=== PATIENT | female | born 1970 | race Caucasian/White ===

== ENCOUNTER 2017-12-18 08:31 | Outpatient (CLI) | payer MEDICARE, MEDICAID ==
[2017-12-18 09:42] LABS: Hemoglobin 9.1 g/dL (12.0-16.0); Mean Corpuscular HGB CONC 31.3 g/dL (32.0-36.0); Mean Corpuscular Hemoglobin 24.4 pg (27.0-31.0); Mean Platelet Volume 7.4 fL (7.4-10.4); Platelet Count 281 thou/uL (130-400); RBC Distribution Width 16.2 % (11.5-14.5); Red Blood Cell (RBC) Count 3.72 mill/uL (4.20-5.40); White Blood Cell (WBC) Count 8.4 thou/uL (4.8-10.8)
[2017-12-18 09:47] LABS: INR-International Normal Ratio 0.9; PTT 28.5 SEC (22.9-36.1); Prothrombin Time 11.7 SEC (12.0-14.7)
[2017-12-18 10:16] LABS: ALT (SGPT) 14 U/L (8-55); AST (SGOT) 17 U/L (5-34); Albumin 4.1 g/dL (3.5-5.0); Alkaline Phosphatase 92 U/L (40-150); Anion Gap 12 mmol/L (10-20); BUN (Urea Nitrogen) 12 mg/dL (7.0-18.7); Bilirubin, Direct 0.1 mg/dL (0.1-0.3); Bilirubin, Total 0.2 mg/dL (0.2-1.2); Calc. Creatinine Clearance 0 mL/min (70-130); Calcium 9.5 mg/dL (7.8-10.44); Carbon Dioxide 29 mmol/L (22-29); Chloride 102 mmol/L (98-107); Estimated GFR-MDRD 88; Glucose 87 mg/dL (70-105); Protein, Total 6.7 g/dL (6.0-8.3); Sodium 139 mmol/L (136-145)
== END 2017-12-18 08:32 | disposition home or self-care (01) ==
LOC: LABBT 08:31
PROVIDERS: ATTEND Neurological Surgery
DX: Z01.818 Encounter for other preprocedural examination (principal); M54.16 Radiculopathy, lumbar region
CPT/HCPCS: 80048; 80076; 85027; 85610; 85730; 93005; 93010

== ENCOUNTER 2017-12-18 08:45 | Inpatient (IN) | payer MEDICARE, MEDICAID ==
[2017-12-18 08:38] VITALS: BMI 24.3
--- NOTE | 2017-12-25 08:54 | OP ---
DATE OF PROCEDURE: 12/25/2017 SURGEON: Josue Nava M.D. APRON OPERATOR: Pat Smith PROCEDURE: Left L4-5 laminectomy, facetectomy, foraminotomy, interbody arthrodesis, intravertebral b iomechanical device, local morselized autograft, demineralized bone matrix, posterior lateral arthrod esis, and pedicle screw instrumentation L4-L5. PROCEDURE IN DETAIL: The patient was brought to the operating room and intubated. She was rolled in the prone position on gel-filled chest rolls. Incision was made exposing L4 and L5 and our level wa s confirmed by x-ray. We performed the left L4-5 laminectomy, facetectomy, and foraminotomy, complet gianna decompressed left L4 and the neural foramen as well as left L5. The disk was incised and debride d and the bony endplates decorticated for the purpose of arthrodesis. An appropriately-sized intrave rtebral biomechanical PEEK device was brought into the field, filled with demineralized bone matrix, local morselized autograft, and tapped into place securely at L4-5. Next, pedicle screws were placed at left L4 and left L5 using lateral fluoroscopic guidance and positioning was confirmed by x-ray. A audrey was secured between the screws, connected by nuts. Compression was applied and the nuts were f inal tightened. The wound was then extensively irrigated, immaculate hemostasis was secured. A comb ination of demineralized bone matrix, local morselized autograft was laid over the laminar and apparatus repair mechanic olateral surfaces for the purpose of arthrodesis. Vancomycin powder was applied and the wound was cl osed in anatomic layers.
[2017-12-25] MEDS ORDERED: PHENYLEPHRINE-NS 100 MCG/ML 10 ML SYRINGE ONE (10:29)
[2017-12-25] MEDS ORDERED: Ondansetron HCl/PF 4 MG/2 ML Vial ONE (10:29)
[2017-12-25] MEDS ORDERED: Glycopyrrolate 0.2 MG/ML 5 ML SYRINGE ONE (10:29)
[2017-12-25] MEDS ORDERED: ePHEDrine/0.9% NaCl/PF SYRINGE 50 mg/10 ml ONE (10:29)
[2017-12-25] MEDS ORDERED: Metoclopramide HCl 10 MG/2 ML VIAL ONE (10:29)
[2017-12-25] MEDS ORDERED: Dexamethasone 20 MG/5 ML VIAL ONE (10:29)
[2017-12-25] MEDS ORDERED: Lidocaine 1% PF 5 ML VIAL ONE (10:29)
[2017-12-25] MEDS ORDERED: PROPOFOL 200 MG/20 ML VIAL ONE (10:29)
== END 2017-12-25 11:35 | disposition home or self-care (01) | DRG 460 ==
LOC: SURG A 12-25 06:01
PROVIDERS: ADMIT Neurological Surgery; ATTEND Neurological Surgery
PROC: 01NB0ZZ Release Lumbar Nerve, Open Approach (ICD-10-PCS; principal; 2017-12-25)
PROC: 0SG00J1 Fusion of Lumbar Vertebral Joint with Synthetic Substitute, Posterior Approach, Posterior Column, Open Approach (ICD-10-PCS; 2017-12-25)
PROC: 0SB20ZZ Excision of Lumbar Vertebral Disc, Open Approach (ICD-10-PCS; 2017-12-25)
DX: M54.16 Radiculopathy, lumbar region (principal); B19.20 Unspecified viral hepatitis C without hepatic coma; M19.90 Unspecified osteoarthritis, unspecified site; F17.200 Nicotine dependence, unspecified, uncomplicated; F31.9 Bipolar disorder, unspecified; F41.9 Anxiety disorder, unspecified
CPT/HCPCS: 76001; 96374; C1713; C1768; J1100; J2001; J2405; J2704; J2765

== ENCOUNTER 2018-01-29 19:38 | Emergency (ER) | payer MEDICARE, MEDICAID ==
[2018-01-29 20:25] LABS: #Basophils 0.1 thou/uL (0.0-0.2); #Eosinphils 0.1 thou/uL (0.0-0.7); #Lymphocytes 1.7 thou/uL (1.20-3.40); #Monocytes 0.4 thou/uL (0.11-0.59); %Basophils 1.1 % (0.0-1.0); %Lymphocytes 27.8 % (21.0-51.0); %Monocytes 5.9 % (0.0-10.0); %Neutrophils 64.2 % (42.0-75.0); Hemoglobin 9.9 g/dL (12.0-16.0); Mean Corpuscular HGB CONC 31.2 g/dL (32.0-36.0); Mean Corpuscular Hemoglobin 24.6 pg (27.0-31.0); Mean Corpuscular Volume 78.9 fL (78.0-98.0); Mean Platelet Volume 7.2 fL (7.4-10.4); Platelet Count 474 thou/uL (130-400); RBC Distribution Width 17.6 % (11.5-14.5); Red Blood Cell (RBC) Count 4.02 mill/uL (4.20-5.40); White Blood Cell (WBC) Count 6.2 thou/uL (4.8-10.8)
[2018-01-29] MEDS ORDERED: Ketorolac Tromethamine 60 MG/2 ML VIAL ONE (20:43)
[2018-01-29 20:45] LABS: ALT (SGPT) 8 U/L (8-55); AST (SGOT) 16 U/L (5-34); Alkaline Phosphatase 115 U/L (40-150); Anion Gap 11 mmol/L (10-20); BUN (Urea Nitrogen) 9 mg/dL (7.0-18.7); Bilirubin, Total 0.3 mg/dL (0.2-1.2); Calc. Creatinine Clearance 0 mL/min (70-130); Calcium 9.4 mg/dL (7.8-10.44); Carbon Dioxide 20 mmol/L (22-29); Chloride 110 mmol/L (98-107); Estimated GFR-MDRD 70; Globulin 2.9 g/dL (2.4-3.5); Glucose 107 mg/dL (70-105); Potassium 3.8 mmol/L (3.5-5.1); Protein, Total 6.9 g/dL (6.0-8.3); Sodium 137 mmol/L (136-145)
--- NOTE | 2018-01-29 21:24 | CT ---
CT OF THE LUMBAR SPINE WITHOUT CONTRAST: 01/29/18 COMPARISON: None. HISTORY: Back surgery on December 20. Left leg pain and back pain ever since the surgery. TECHNIQUE: Multiple contiguous axial images were obtained in a CT of the lumbar spine without contrast. Sagittal and coronal reforms were performed. FINDINGS: The patient is status post posterior fusion of L4 and L5 with left sided pedicle screws. The screws a ppear in good position. No perihardware lucency is appreciated. Bone graft material is seen along the right posterior elements. A disc spacer is seen within the L4-5 disc space. This is near the left goldman barticular region of the disc space. Streak artifact limits evaluation in this region and it cannot b e definitively excluded from being in the left subarticular recess. The vertebral bodies demonstrate normal height without subluxation. There is slight wedge deformity of the L1 vertebral body which is likely chronic. The prevertebral soft tissues are unremarkable. Postsurgical changes are seen in the stomach. IMPRESSION: Postsurgical changes of the lumbar spine as above. The disc spacer within the L4-5-S1 disc space exte nds posteriorly along the disc space near the subarticular region. Placement within the disc versus s ubarticular region cannot be definitely seen secondary to streak artifact. POS: [facility]
== END 2018-01-29 20:53 | disposition left against medical advice (07) ==
LOC: ERS 19:38
DX: Z53.21 Procedure and treatment not carried out due to patient leaving prior to being seen by health care provider (principal)
CPT/HCPCS: 36415; 72131; 80053; 85025; 85652; 86140; J1885

== ENCOUNTER 2018-02-19 13:22 | Outpatient (CLI) | payer MEDICARE, MEDICAID ==
--- NOTE | 2018-02-19 15:28 | RAD ---
RADIOGRAPH LUMBAR SPINE 2 VIEWS: 02/19/18 HISTORY: 47-year-old female with M54.16 - lumbar radiculopathy. COMPARISON: 01/08/18. FINDINGS: There are five lumbar type vertebrae. Decompression of the superior end plate of L1 resulting in mild loss of height. The rest of the vertebral body heights are maintained. Unilateral left pedicle screws at L4 and 5 with vertical interlocking audrey. Metallic markers for interbody graft at the left side of the L4-5 disc space. There are no osseous bridges between the end plates of L4 and L5. No spondylolisthesis. Mild disc space narrowing at L4-5. Mild disc space narrowing at L4-5 and T12-L1. The rest of the disc spaces are maintained. No interval change. IMPRESSION: 1. Interbody fusion graft and unilateral left pedicle screws at L4-5. No ankylosis across the di sc space. 2. Old compression fracture of L1. 3. No interval change since 01/08/18. [place] [] POS: [facility]
== END 2018-02-19 13:23 | disposition home or self-care (01) ==
LOC: TBSIIMAG 13:22
PROVIDERS: ATTEND Neurological Surgery
DX: M54.16 Radiculopathy, lumbar region (principal); Z98.1 Arthrodesis status
CPT/HCPCS: 72100

== ENCOUNTER 2018-03-19 07:12 | Day surgery (SDC) | payer MEDICARE, MEDICAID ==
[2018-03-18 10:20] VITALS: BMI 24.3
[2018-03-19 08:45] VITALS: BP 99/69; TEMP 97.6
[2018-03-19] MEDS ORDERED: Iopamidol-M 200 41% 20 ML VIAL ONE (10:40)
--- NOTE | 2018-03-19 11:05 | RAD ---
LUMBAR MYELOGRAM: History: Low back pain with radiculopathy. FINDINGS: After explaining the procedure and answering all questions, the lower back was prepped and draped in the usual sterile fashion. Sterile technique, buffered local anesthesia, fluoroscopic guidance and po sterior L2-3 approach were used to carefully advance a 22 gauge spinal needle into the thecal sac. Ap proximately 10 cc of Isovue 200 contrast was then carefully instilled into the thecal sac under fluor oscopic control. The needle was removed and spot images obtained. The patient tolerated the procedure well and was transferred to CT in good condition for further imaging. Fluoro time: 0.5 minutes. IMPRESSION: Technically successful lumbar myelogram. CT is pending. POS: [facility]
--- NOTE | 2018-03-19 11:27 | CT ---
CT LUMBAR SPINE WITH CONTRAST: HISTORY: Low back pain. Left leg radiculopathy. Prior surgery. FINDINGS: Contrast material in the thecal sac is consistent with recent myelogram. T12-L1: Mild chronic appearing compression of the T12 superior endplate. Disk space narrowing at th is level. Mild posterior disk bulge without significant central canal stenosis. Mild right foramina l stenosis. L1-L2/L2-L3/L3-L4: Mild osteophytosis. The central canal and neural foramina are patent. L4-L5: Left pedicle screws and vertical audrey. Interbody fusion material is in place. Disk space genoveva rowing. Posterior disk bulge and circumferential degenerative changes. Moderate stenosis of the the dana sac at this level. Soft tissue opacity throughout the left neural foramen and left lateral reces s, with poor definition of the left nerve root. Moderate stenosis of the right neural foramen. L5-S1: Mild osteophytosis and stenosis of each neural foramen. The thecal sac is patent. Minimal d isk bulge. IMPRESSION: Postoperative changes at the L4-L5 level, where the only significant degenerative changes of the lumb ar spine are present. There is moderate stenosis of the thecal sac. Soft tissue opacification throu ghout the left neural foramen and lateral recesses could represent scar tissue or other process affec ting the left L4 nerve root. No evidence of hardware complication. POS: [facility]
== END 2018-03-19 10:00 | disposition home or self-care (01) ==
LOC: RAD 07:12
PROVIDERS: ATTEND Neurological Surgery
PROC: B01B1ZZ Fluoroscopy of Spinal Cord using Low Osmolar Contrast (ICD-10-PCS; principal; 2018-03-19)
DX: M51.16 Intervertebral disc disorders with radiculopathy, lumbar region (principal); M51.25 Other intervertebral disc displacement, thoracolumbar region; M25.78 Osteophyte, vertebrae; M48.05 Spinal stenosis, thoracolumbar region; M48.061 Spinal stenosis, lumbar region without neurogenic claudication; M48.07 Spinal stenosis, lumbosacral region; Z79.899 Other long term (current) drug therapy; Z88.5 Allergy status to narcotic agent; Z88.8 Allergy status to other drugs, medicaments and biological substances; Z98.1 Arthrodesis status
CPT/HCPCS: 62304; 72132

== ENCOUNTER 2018-04-01 07:52 | Inpatient (IN) | payer MEDICARE, MEDICAID ==
[2018-03-29 11:07] VITALS: BMI 26.9
[2018-04-01 08:34] LABS: #Basophils 0.1 thou/uL (0.0-0.2); #Eosinphils 0.1 thou/uL (0.0-0.7); #Lymphocytes 1.6 thou/uL (1.20-3.40); #Monocytes 0.4 thou/uL (0.11-0.59); #Neutrophils 4.2 thou/uL (1.40-6.50); %Eosinophils 1.4 % (0.0-10.0); %Monocytes 5.9 % (0.0-10.0); %Neutrophils 66.7 % (42.0-75.0); Hemoglobin 9.8 g/dL (12.0-16.0); Mean Corpuscular HGB CONC 29.3 g/dL (32.0-36.0); Mean Corpuscular Hemoglobin 23.6 pg (27.0-31.0); Mean Corpuscular Volume 80.4 fL (78.0-98.0); Mean Platelet Volume 8.2 fL (7.4-10.4); Platelet Count 174 thou/uL (130-400); RBC Distribution Width 17.1 % (11.5-14.5); Red Blood Cell (RBC) Count 4.16 mill/uL (4.20-5.40); White Blood Cell (WBC) Count 6.3 thou/uL (4.8-10.8)
[2018-04-01] MEDS ORDERED: Sodium Chloride 0.9% 10 ML ONE (08:47)
[2018-04-01 08:51] LABS: Hypochromia SLIGHT = 6-15 cells (100X) (0-5/hpf); MDiff Complete? YES; PLT Morphology Comment Appears Adequate; Polychromasia SLIGHT = 2-3 cells (100X) (0-2/hpf)
[2018-04-01] MEDS ORDERED: CEFAZOLIN 2 GM/50 ML BAG ONE (08:53)
[2018-04-01 08:57] LABS: Anion Gap 8 mmol/L (10-20); BUN (Urea Nitrogen) 13 mg/dL (7.0-18.7); Calc. Creatinine Clearance 98 mL/min (70-130); Calcium 9.4 mg/dL (7.8-10.44); Carbon Dioxide 28 mmol/L (22-29); Chloride 104 mmol/L (98-107); Estimated GFR-MDRD 64; Glucose 83 mg/dL (70-105); Potassium 4.1 mmol/L (3.5-5.1); Sodium 136 mmol/L (136-145)
[2018-04-01] MEDS ORDERED: Fentanyl 100 MCG/2 ML VIAL ONE ×3 (09:27→10:57)
--- NOTE | 2018-04-01 10:11 | OP ---
DATE OF PROCEDURE: 04/01/2018 SURGEON: Josue Nava M.D. EXTRACTING MACHINE OPERATOR: Hayley Ramirez PA-C. PROCEDURE: Removal of hardware L4-L5, exploration of spinal fusion L4-L5, posterolateral arthrodesis , demineralized bone matrix and local morselized autograft, BMP, pedicle screw instrumentation L4-L5. PROCEDURE IN DETAIL: The patient was brought to the operating room and intubated. She was rolled in the prone position on gel-filled chest rolls. The previous incision was reopened. We identified th e previous hardware at L4-L5 and removed the nuts and audrey. We removed the left L5 screw as it was lo ose as anticipated. There was no evidence of solid bony fusion after exploration. We replaced a lar carroll diameter and longer length left L5 screw and then placed screws at right L4 and right L5 using la teral fluoroscopic guidance. A audrey was secured between the screws bilaterally, connected by nuts, wh ich were final tightened. The wound was then extensively irrigated. Immaculate hemostasis was secur ed. A combination of BMP and cancellous bone chips were laid over the laminar and posterolateral mai faces for the purpose of arthrodesis. Vancomycin powder was applied and the wound was closed in jae omic layers.
[2018-04-01] MEDS ORDERED: Milk Of Magnesia 30 ML UDCUP PO PRN (12:13)
[2018-04-01] MEDS ORDERED: Promethazine HCl 25 MG/ML VIAL IM PRN (12:13)
[2018-04-01] MEDS ORDERED: Ondansetron PF 4 MG/2 ML Vial IM PRN (12:13)
[2018-04-01] MEDS ORDERED: Promethazine 25 MG TAB PO PRN (12:13)
[2018-04-01] MEDS ORDERED: HYDROcodone/Acetaminophen 10/325 mg Tablet PO PRN (12:13)
[2018-04-01] MEDS ORDERED: Mag-Al 1200 mg/1200 mg/30 ML UDCUP PO PRN (12:13)
[2018-04-01] MEDS ORDERED: diphenhydrAMINE 50 MG/ML VIAL IVP PRN (12:13)
[2018-04-01] MEDS ORDERED: Promethazine HCl 12.5 MG SUPP PR PRN (12:13)
[2018-04-01] MEDS ORDERED: Morphine 4 MG/ML VIAL SLOW IVP PRN (12:13)
[2018-04-01] MEDS ORDERED: tiZANidine HCl 4 MG TAB PO PRN (12:13)
[2018-04-01] MEDS ORDERED: diphenhydrAMINE 25 MG CAP PO PRN (12:13)
[2018-04-01] MEDS ORDERED: SUMAtriptan Succinate 50 MG TAB PO PRN (12:38)
[2018-04-01] MEDS: Sodium Chloride 0.9% 1,000 ML IV SCH (12:42)
[2018-04-01] MEDS: HYDROcodone/Acetaminophen 10/325 mg Tablet PO PRN ×3 (12:52→21:41)
[2018-04-01] MEDS ORDERED: Gabapentin 300 MG CAP PO SCH (13:00)
[2018-04-01] MEDS: Promethazine 25 MG TAB PO PRN ×2 (13:59→23:51)
[2018-04-01] MEDS: Gabapentin 300 MG CAP PO SCH ×2 (14:42→21:40)
[2018-04-01] MEDS: Meclizine HCl 25 MG TAB PO SCH ×2 (14:42→21:38)
[2018-04-01] MEDS ORDERED: Glycopyrrolate 0.2 MG/ML 5 ML SYRINGE ONE (15:16)
[2018-04-01] MEDS: Morphine 2 MG/ML SYRINGE SLOW IVP PRN ×2 (15:16→19:06)
[2018-04-01] MEDS ORDERED: Dexamethasone 20 MG/5 ML VIAL ONE (15:16)
[2018-04-01] MEDS ORDERED: PROPOFOL 200 MG/20 ML VIAL ONE (15:16)
[2018-04-01] MEDS ORDERED: PHENYLEPHRINE-NS 100 MCG/ML 10 ML SYRINGE ONE (15:16)
[2018-04-01] MEDS ORDERED: Ondansetron PF 4 MG/2 ML Vial ONE (15:16)
[2018-04-01] MEDS ORDERED: Lidocaine 1% PF 5 ML VIAL ONE (15:16)
[2018-04-01] MEDS: Ketorolac Tromethamine 30 MG/ML VIAL IVP SCH ×2 (17:19→23:51)
[2018-04-01] MEDS: CEFAZOLIN 2 GM/50 ML-DEXTROSE 2 GM in Premix Bag 1 BAG IVPB SCH (17:20)
[2018-04-01] MEDS ORDERED: CEFAZOLIN 2 GM/50 ML-DEXTROSE 2 GM in Premix Bag 1 BAG IVPB SCH (18:00)
[2018-04-01] MEDS ORDERED: DULoxetine 30 MG CAP PO SCH (21:00)
[2018-04-01] MEDS ORDERED: DULoxetine 60 MG CAP PO SCH (21:00)
[2018-04-01] MEDS ORDERED: traZODone HCl 150 MG TAB PO SCH (21:00)
[2018-04-01] MEDS ORDERED: Lurasidone 20 MG TABLET PO SCH (21:00)
[2018-04-02] MEDS: Morphine 2 MG/ML SYRINGE SLOW IVP PRN (00:03)
[2018-04-02] MEDS: CEFAZOLIN 2 GM/50 ML-DEXTROSE 2 GM in Premix Bag 1 BAG IVPB SCH (00:04)
[2018-04-02] MEDS: HYDROcodone/Acetaminophen 10/325 mg Tablet PO PRN ×2 (01:36→06:48)
[2018-04-02] MEDS: Ketorolac Tromethamine 30 MG/ML VIAL IVP SCH (05:54)
[2018-04-02] MEDS: Sodium Chloride 0.9% 1,000 ML IV SCH (08:22)
--- NOTE | 2018-04-02 08:48 | EKG ---
Test Reason : PREOP Blood Pressure : / mmHG Vent. Rate : 072 BPM Atrial Rate : 072 BPM P-R Int : 148 ms QRS Dur : 072 ms QT Int : 386 ms P-R-T Axes : 074 042 047 degrees QTc Int : 422 ms Normal sinus rhythm Normal ECG When compared with ECG of 18-DEC-2017 09:12, No significant change was found Confirmed by DR. Sergo CLANCY ([id number]) on 04/02/2018 8:48:25 AM Referred By: BHUMI Confirmed By:DR. Sergo CLANCY
[2018-04-02] MEDS: Gabapentin 300 MG CAP PO SCH (08:54)
[2018-04-02] MEDS: Promethazine 25 MG TAB PO PRN (08:54)
[2018-04-02 10:40] VITALS: BP 97/60; TEMP 97.5
== END 2018-04-02 08:55 | disposition home or self-care (01) | DRG 460 ==
LOC: EDSTATUS 07:52 → SURG A 07:52
PROVIDERS: ADMIT Neurological Surgery; ATTEND Neurological Surgery
PROC: 0SG00AJ Fusion of Lumbar Vertebral Joint with Interbody Fusion Device, Posterior Approach, Anterior Column, Open Approach (ICD-10-PCS; principal; 2018-04-01)
PROC: 0SP004Z Removal of Internal Fixation Device from Lumbar Vertebral Joint, Open Approach (ICD-10-PCS; 2018-04-01)
PROC: 3E0U0GB Introduction of Recombinant Bone Morphogenetic Protein into Joints, Open Approach (ICD-10-PCS; 2018-04-01)
DX: M54.16 Radiculopathy, lumbar region (principal); G89.29 Other chronic pain
CPT/HCPCS: 36415; 76001; 80048; 85025; 93005; 93010; C1713; J1100; J1200; J1885; J2001; J2270; J2405; J2704; J3010; J3370; J3490

== ENCOUNTER 2018-04-16 14:20 | Outpatient (CLI) | payer MEDICARE, MEDICAID ==
--- NOTE | 2018-04-16 16:30 | RAD ---
LUMBAR SPINE RADIOGRAPHS TWO VIEWS: Date: 04-16-18 Provided Clinical History: Post op. FINDINGS: Comparison is made with the study dated 02-19-18. Bilateral pedicle screws and vertically interconnecting rods are noted spanning L4-5 with intervening intervertebral disc device. Lumbar alignment appears normal. Vertebral body height appear unchanged. Cutaneous александр overlying the dorsal aspect of the lower lumbar spine. IMPRESSION: Interval post-operative change as above. POS: [facility]
== END 2018-04-16 14:21 | disposition home or self-care (01) ==
LOC: TBSIIMAG 14:20
PROVIDERS: ATTEND Neurological Surgery
DX: M54.16 Radiculopathy, lumbar region (principal); Z98.890 Other specified postprocedural states
CPT/HCPCS: 72100

== ENCOUNTER 2018-05-28 13:48 | Outpatient (CLI) | payer MEDICARE, MEDICAID ==
--- NOTE | 2018-05-28 14:54 | RAD ---
LUMBAR SPINE TWO VIEWS: History: Follow up surgery. Lumbar pain. Comparison: 04-16-18 FINDINGS: Post op changes at L4-5 again noted. Posterior pedicle screws are unchanged in position. Interbody im plant is unchanged in position. Mild compression deformity involving the L1 vertebra is unchanged in appearance. IMPRESSION: Stable lumbar spine findings. POS: [facility]
== END 2018-05-28 13:49 | disposition home or self-care (01) ==
LOC: TBSIIMAG 13:48
PROVIDERS: ATTEND Neurological Surgery
DX: M54.16 Radiculopathy, lumbar region (principal)
CPT/HCPCS: 72100

== ENCOUNTER 2018-08-27 13:08 | Outpatient (CLI) | payer MEDICARE, MEDICAID ==
--- NOTE | 2018-08-27 14:26 | RAD ---
2 VIEWS LUMBAR SPINE: Date: 08/27/18 COMPARISON: 05/28/18. HISTORY: Status post back surgery. FINDINGS: Unchanged lumbar fusion at L4-L5. Stable loss of vertebral body height at L1. IMPRESSION: Stable fusion at L4-L5. POS: [facility]
== END 2018-08-27 13:09 | disposition home or self-care (01) ==
LOC: TBSIIMAG 13:08
PROVIDERS: ATTEND Neurological Surgery
DX: M54.16 Radiculopathy, lumbar region (principal); Z98.1 Arthrodesis status
CPT/HCPCS: 72100

== ENCOUNTER 2020-09-16 12:00 | Inpatient (IN) | payer MEDICARE, MEDICAID ==
[2020-09-20 16:03] VITALS: BMI 23.6
[2020-09-21] MEDS ORDERED: Tranexamic Acid 1,000 MG/10 ML VIAL ONE (05:59)
[2020-09-21] MEDS ORDERED: Vancomycin 1 GM/200 ML BAG ONE (05:59)
[2020-09-21] MEDS ORDERED: Sodium Chloride 0.9% 100 ML ONE (05:59)
[2020-09-21] MEDS ORDERED: Fentanyl 100 MCG/2 ML VIAL ONE ×5 (06:08→12:46)
[2020-09-21] MEDS ORDERED: Midazolam HCl 2 mg/2 ml Vial ONE (06:08)
[2020-09-21] MEDS ORDERED: Rocuronium Bromide 10 MG/ML (10ML VIAL) ONE (06:46)
[2020-09-21] MEDS ORDERED: Dexamethasone 20 MG/5 ML VIAL ONE (06:46)
[2020-09-21] MEDS ORDERED: Ondansetron PF 4 MG/2 ML Vial ONE (06:46)
[2020-09-21] MEDS ORDERED: Lidocaine 1% PF 5 ML VIAL ONE (06:46)
[2020-09-21] MEDS ORDERED: Glycopyrrolate 0.2 MG/ML 5 ML SYRINGE ONE (06:46)
[2020-09-21] MEDS ORDERED: PHENYLEPHRINE-NS 100 MCG/ML 10 ML SYRINGE ONE (06:46)
[2020-09-21] MEDS ORDERED: ePHEDrine Sulfate 50 MG/10 ML VIAL ONE (06:46)
[2020-09-21] MEDS ORDERED: PROPOFOL 200 MG/20 ML VIAL ONE (06:46)
[2020-09-21] MEDS ORDERED: diphenhydrAMINE 25 MG CAP PO PRN ×4 (06:57→15:30)
[2020-09-21] MEDS ORDERED: Acetaminophen 325 MG TAB PO PRN (06:57)
[2020-09-21] MEDS ORDERED: HYDROcodone/Acetaminophen 10/325 mg Tablet PO PRN ×2 (06:57)
[2020-09-21] MEDS ORDERED: Promethazine HCl 25 MG/ML VIAL IM PRN ×5 (06:57→15:30)
[2020-09-21] MEDS ORDERED: Ondansetron PF 4 MG/2 ML Vial IVP PRN ×4 (06:57→15:30)
[2020-09-21] MEDS ORDERED: Lidocaine 1.5% w/Epi 1:200K 30 ML VIAL (Epid Use) ONE (07:15)
[2020-09-21] MEDS ORDERED: Bupivacaine 0.25% HCL 30 ML VIAL ONE (07:23)
[2020-09-21] MEDS ORDERED: Acetaminophen 500 MG TAB PO PRN (09:05)
[2020-09-21] MEDS ORDERED: Ondansetron HCl/PF 4 MG/2 ML Vial IVP PRN (09:12)
[2020-09-21] MEDS ORDERED: Promethazine HCl 25 MG/ML VIAL SLOW IVP PRN (09:12)
[2020-09-21] MEDS ORDERED: HYDROmorphone 2 MG/ML VIAL SLOW IVP PRN (09:12)
[2020-09-21] MEDS ORDERED: HYDROcodone/Acetaminophen 5/325 mg Tablet PO PRN ×2 (09:15)
[2020-09-21] MEDS ORDERED: Naloxone HCl 0.4 mg/ml Vial IVP PRN (09:15)
[2020-09-21] MEDS ORDERED: Hydrocerin (Eucerin) Cream 120 gm Jar TOP PRN (09:15)
[2020-09-21] MEDS ORDERED: Promethazine HCl 25 MG SUPP PR PRN (09:15)
[2020-09-21] MEDS ORDERED: Bupivacaine 0.25% 10 ML VIAL EPIDURAL PRN (09:15)
[2020-09-21] MEDS ORDERED: Zolpidem Tartrate 5 MG TAB PO PRN (09:15)
[2020-09-21] MEDS ORDERED: diphenhydrAMINE 50 MG/ML VIAL IM PRN (09:15)
[2020-09-21] MEDS ORDERED: diphenhydrAMINE 50 MG/ML VIAL IVP PRN (09:15)
[2020-09-21] MEDS ORDERED: Naloxone HCl 0.4 mg/ml Vial IV PRN ×3 (09:15→15:30)
[2020-09-21] MEDS ORDERED: fentaNYL Citrate/PF 500 MCG, Bupivacaine 10 ML in Sodium Chloride 0.9% 80 ML EPIDURAL SCH (09:15)
[2020-09-21] MEDS ORDERED: traMADol HCl 50 MG TAB PO PRN ×2 (09:15)
[2020-09-21] MEDS ORDERED: HYDROmorphone 2 MG/ML VIAL ONE (09:22)
[2020-09-21] MEDS ORDERED: Promethazine HCl 25 MG/ML VIAL ONE (09:23)
[2020-09-21] MEDS ORDERED: Ketorolac Tromethamine 30 MG/ML VIAL ONE (09:50)
[2020-09-21] MEDS ORDERED: Ketorolac Tromethamine 30 MG/ML VIAL IVP SCH (12:00)
[2020-09-21] MEDS ORDERED: diphenhydrAMINE 50 MG/ML VIAL IM/IV PRN ×2 (12:45→15:30)
[2020-09-21] MEDS ORDERED: Fentanyl CADD 100 ML IVPB SCH (12:45)
[2020-09-21] MEDS ORDERED: Ketorolac Tromethamine 30 MG/ML VIAL IM SCH (14:00)
[2020-09-21] MEDS: CEFAZOLIN 2 GM in Premix Bag 1 BAG IVPB SCH ×2 (14:49→22:41)
[2020-09-21] MEDS: HYDROmorphone 10 mg/100 ml CADD IVPB PRN (16:15)
[2020-09-21] MEDS: Multivitamin W/ Minerals 1 TAB PO SCH (17:39)
[2020-09-21] MEDS: Ferrous Gluconate 324 MG TAB PO SCH ×2 (17:39→19:57)
[2020-09-21] MEDS: Aspirin 81 mg Enteric Coated Tablet PO SCH ×2 (17:39→19:57)
[2020-09-21] MEDS: Senokot S 8.6-50 MG TAB PO SCH ×2 (17:39→19:57)
[2020-09-21] MEDS: Sodium Chloride 0.9% 1,000 ML IV SCH ×2 (17:39→20:04)
[2020-09-22] MEDS: HYDROmorphone 10 mg/100 ml CADD IVPB PRN (04:51)
[2020-09-22 05:32] LABS: Hemoglobin 10.2 g/dL (12.0-16.0); Mean Corpuscular HGB CONC 32.8 g/dL (32.0-36.0); Mean Corpuscular Hemoglobin 30.3 pg (27.0-31.0); Mean Corpuscular Volume 92.1 fL (78.0-98.0); Mean Platelet Volume 8.2 fL (7.4-10.4); Platelet Count 193 thou/uL (130-400); RBC Distribution Width 13.3 % (11.5-14.5); Red Blood Cell (RBC) Count 3.38 mill/uL (4.20-5.40); White Blood Cell (WBC) Count 9.3 thou/uL (4.8-10.8)
[2020-09-22] MEDS: Multivitamin W/ Minerals 1 TAB PO SCH (09:14)
[2020-09-22] MEDS: Aspirin 81 mg Enteric Coated Tablet PO SCH (09:14)
[2020-09-22] MEDS: Senokot S 8.6-50 MG TAB PO SCH (09:14)
[2020-09-22] MEDS: Ferrous Gluconate 324 MG TAB PO SCH (09:14)
[2020-09-22] MEDS ORDERED: Acetaminophen 500 MG TAB PO SCH (09:15)
[2020-09-22] MEDS: Sodium Chloride 0.9% 1,000 ML IV SCH ×2 (10:12→12:18)
[2020-09-22] MEDS ORDERED: HYDROcodone/Acetaminophen 10/325 mg Tablet PO PRN ×4 (14:29→15:16)
[2020-09-22] MEDS ORDERED: traMADol HCl 50 MG TAB PO PRN ×2 (15:13→15:14)
[2020-09-22 16:03] VITALS: BP 108/79; TEMP 98
== END 2020-09-22 16:07 | disposition home or self-care (01) | DRG 470 ==
LOC: SJJU 09-21 05:29 → EDSTATUS 09-21 12:00 → SJJU 09-21 13:57
PROVIDERS: ADMIT Orthopaedic Surgery; ATTEND Orthopaedic Surgery
PROC: 0SRB04Z Replacement of Left Hip Joint with Ceramic on Polyethylene Synthetic Substitute, Open Approach (ICD-10-PCS; principal; 2020-09-21)
DX: M87.052 Idiopathic aseptic necrosis of left femur (principal); Z90.710 Acquired absence of both cervix and uterus; G89.29 Other chronic pain; G43.909 Migraine, unspecified, not intractable, without status migrainosus; F17.210 Nicotine dependence, cigarettes, uncomplicated; Z83.3 Family history of diabetes mellitus; Z82.49 Family history of ischemic heart disease and other diseases of the circulatory system
CPT/HCPCS: 36415; 85027; J0690; J1100; J1170; J1885; J2001; J2250; J2405; J2550; J2704; J3010; J3370; J3490; S0020

== ENCOUNTER 2020-09-16 12:21 | Outpatient (CLI) | payer MEDICARE, MEDICAID ==
[2020-09-16 15:26] LABS: INR-International Normal Ratio 0.9; Prothrombin Time 10.5 sec (9.5-12.1)
[2020-09-16 15:40] LABS: #Basophils 0.1 10x3/uL (0.0-0.2); #Eosinphils 0.1 10x3/uL (0.0-0.5); #Monocytes 0.6 10x3/uL (0.0-1.1); #Neutrophils 4.4 10x3/uL (1.5-8.4); %Basophils 0.7 % (0.0-2.0); %Eosinophils 1.3 % (0.0-6.0); %Lymphocytes 29.1 % (18.0-47.0); %Monocytes 7.8 % (0.0-10.0); %Neutrophils 60.7 % (40.0-75.0); Hemoglobin 14.3 g/dL (12.0-15.5); Mean Corpuscular HGB CONC 32.4 g/dL (32.0-36.0); Mean Corpuscular Hemoglobin 28.9 pg (27.0-33.0); Mean Corpuscular Volume 89.3 fl (81.6-98.3); Mean Platelet Volume 11.5 fl (7.4-10.4); Platelet Count 290 10x3/uL (150-450); RBC Distribution Width 14.6 % (11.5-14.5); Red Blood Cell (RBC) Count 4.95 10x6/uL (3.90-5.03); White Blood Cell (WBC) Count 7.2 10x3/uL (3.5-10.5)
[2020-09-16 15:42] LABS: Bilirubin Neg (Negative); Blood, Urine Negative (Negative); Clarity Clear (Clear); Glucose, Urine (Dipstick) Normal (Negative); Ketone, Urine Negative (Negative); Leukocyte 25 (Negative); Nitrite Negative (Negative); Protein, Urine (Dipstick) Negative (Neg-Trace); Specific Gravity, Urine 1.015 (1.002-1.036); Urobilinogen Normal mg/dL (Less than 2); pH, Urine 6.5 (5.0-9.0)
[2020-09-16 16:13] LABS: Anion Gap 19 mmol/L (10-20); BUN (Urea Nitrogen) 8 mg/dL (7.0-18.7); Calc. Creatinine Clearance 0 mL/min (70-130); Calcium 9.7 mg/dL (7.8-10.44); Carbon Dioxide 22 mmol/L (22-29); Chloride 100 mmol/L (98-107); Glucose 86 mg/dL (70-105); Potassium 4.4 mmol/L (3.5-5.1); Sodium 137 mmol/L (136-145)
[2020-09-16 16:14] LABS: Bacteria/HPF None Seen HPF (None Seen); RBC/HPF None Seen HPF (0-3); Squamous Epithelial None Seen HPF (0-3); WBC/HPF None Seen HPF (0-3)
[2020-09-17 01:48] LABS: SARS-CoV-2 PCR by NAA Not Detected (NotDetected)
== END 2020-09-16 12:22 | disposition home or self-care (01) ==
LOC: LABBT 12:21
PROVIDERS: ATTEND Orthopaedic Surgery
DX: Z01.818 Encounter for other preprocedural examination (principal); M87.052 Idiopathic aseptic necrosis of left femur; Z20.822 Contact with and (suspected) exposure to COVID-19
CPT/HCPCS: 80048; 81001; 85025; 85610; 87081; 93005; U0003; U0005; 87635; 93010

== ENCOUNTER 2020-10-01 16:39 | Emergency (ER) | payer MEDICARE, MEDICAID ==
[2020-10-01] MEDS ORDERED: HYDROcodone/Acetaminophen 10/325 mg Tablet ONE (18:23)
[2020-10-01] MEDS ORDERED: Promethazine 25 MG TAB ONE (18:24)
== END 2020-10-01 18:27 | disposition home or self-care (01) ==
LOC: ERS 16:39
DX: Z47.1 Aftercare following joint replacement surgery (principal); G47.00 Insomnia, unspecified; F17.210 Nicotine dependence, cigarettes, uncomplicated
CPT/HCPCS: Q0169

== ENCOUNTER 2021-10-23 17:48 | Emergency (ER) | payer MEDICARE, MEDICAID ==
[2021-10-23] MEDS ORDERED: Fentanyl 100 MCG/2 ML VIAL ONE (18:20)
[2021-10-23] MEDS ORDERED: Ketorolac Tromethamine 30 MG/ML VIAL ONE (18:20)
[2021-10-23] MEDS ORDERED: Boostrix 0.5 ML (Tdap) VIAL ONE (18:20)
[2021-10-23] MEDS ORDERED: Silver Sulfadiazine 50 GM TUBE ONE (18:23)
== END 2021-10-23 18:41 | disposition home or self-care (01) ==
LOC: ERS 17:48
DX: T25.231A Burn of second degree of right toe(s) (nail), initial encounter (principal); T24.111A Burn of first degree of right thigh, initial encounter; T25.111A Burn of first degree of right ankle, initial encounter; T31.0 Burns involving less than 10% of body surface; X10.2XXA Contact with fats and cooking oils, initial encounter; G47.00 Insomnia, unspecified; F17.210 Nicotine dependence, cigarettes, uncomplicated; Z23 Encounter for immunization
CPT/HCPCS: 90715; 99283; J1885; J3010

== ENCOUNTER 2021-12-03 20:10 | Emergency (ER) | payer MEDICARE, MEDICAID ==
[2021-12-03] MEDS ORDERED: Ketorolac Tromethamine 30 MG/ML VIAL ONE (20:30)
[2021-12-03] MEDS ORDERED: Morphine 4 MG/ML VIAL ONE (20:30)
[2021-12-03] MEDS ORDERED: Ondansetron PF 4 MG/2 ML Vial ONE (21:13)
== END 2021-12-03 21:29 | disposition home or self-care (01) ==
LOC: ERS 20:10
DX: M25.552 Pain in left hip (principal); L90.5 Scar conditions and fibrosis of skin; G47.00 Insomnia, unspecified; F17.210 Nicotine dependence, cigarettes, uncomplicated; W13.3XXA Fall through floor, initial encounter; Y92.039 Unspecified place in apartment as the place of occurrence of the external cause; Z79.899 Other long term (current) drug therapy
CPT/HCPCS: 93005; 96372; J1885; J2270; J2405

== ENCOUNTER 2022-07-25 21:20 | Emergency (ER) | payer SELFPAY ==
[2022-07-25] MEDS ORDERED: Ondansetron ODT 4 MG TAB ONE (22:12)
[2022-07-25] MEDS ORDERED: Ketorolac Tromethamine 30 MG/ML VIAL ONE (22:13)
== END 2022-07-25 22:41 | disposition home or self-care (01) ==
LOC: ERS 21:20
DX: S70.01XA Contusion of right hip, initial encounter (principal); F17.210 Nicotine dependence, cigarettes, uncomplicated; W18.30XA Fall on same level, unspecified, initial encounter
CPT/HCPCS: 72170; J1885; Q0162